=== PATIENT | male | born 1955 | race African-American/Black ===

== ENCOUNTER 2018-10-09 00:34 | Emergency (ER) | payer BC, OTHER ==
--- NOTE | 2018-10-09 04:26 | EDPHYS ---
Physician Documentation [facility] Name: Jesus Caraballo Jr Age: 63 yrs Sex: Male : 1955 Arrival Date: 10/09/2018 Time: 00:38 Bed 25 Private MD: ED Physician Mitchell Gomez HPI: 10/09 02:12 This 63 yrs old Black Male presents to ER via Ambulatory with complaints of Breathing rn Difficulty. 02:12 The patient has shortness of breath at rest, with light activity. Onset: The rn symptoms/episode began/occurred 5 day(s) ago. Duration: The symptoms are intermittent. The patient's shortness of breath is aggravated by exertion, light activity, supine position, talking, walking, is alleviated by rest. Severity of symptoms: At their worst the symptoms were moderate in the emergency department the symptoms are unchanged. The patient has not experienced similar symptoms in the past. The patient has not recently seen a physician. Historical: - Allergies: 00:59 Iodine; ae4 00:59 SHELLFISH; ae4 - Home Meds: 00:59 hydrochlorothiazide 25 mg Oral tab [Active]; metformin 750 mg Oral Tb24 1 tab once ae4 daily [Active]; candesartan 32 mg oral tab 1 tab once daily [Active]; carvedilol 12.5 mg oral tab [Active]; - PMHx: 00:59 Hypertension; Diabetes - NIDDM; ae4 - PSHx: 00:59 None; ae4 - Immunization history:: Adult Immunizations up to date. - Social history:: Smoking status: Patient/guardian denies using tobacco, Patient uses alcohol, weekly. - Ebola Screening: : Patient negative for fever greater than or equal to 101.5 degrees Fahrenheit, and additional compatible Ebola Virus Disease symptoms Patient denies exposure to infectious person Patient denies travel to an Ebola-affected area in the 21 days before illness onset. - Family history:: not pertinent. - Hospitalizations: : No recent hospitalization is reported. ROS: 02:12 Constitutional: Negative for fever, chills, and weight loss, Eyes: Negative for injury, rn pain, redness, and discharge, Neck: Negative for injury, pain, and swelling, Cardiovascular: Negative for chest pain, palpitations, + edema Respiratory: + sob Abdomen/GI: Negative for abdominal pain, nausea, vomiting, diarrhea, and constipation, MS/Extremity: Negative for injury and deformity, Skin: Negative for injury, rash, and discoloration, Neuro: Negative for headache, weakness, numbness, tingling, and seizure. Exam: 02:12 Constitutional: + overweight male, no acute distress Head/Face: Normocephalic, rn atraumatic. Eyes: Pupils equal round and reactive to light, extra-ocular motions intact. Lids and lashes normal. Conjunctiva and sclera are non-icteric and not injected. Cornea within normal limits. Periorbital areas with no swelling, redness, or edema. ENT: MMM Cardiovascular: Regular rate and rhythm. No pulse deficits. No JVD Respiratory: Clear bilateral breath sounds, no wheezing, no retractions, speaking full sentences Abdomen/GI: soft, non-tender MS/ Extremity: 2+ pitting edema bilaterally, equal Neuro: Awake and alert, GCS 15, oriented to person, place, time, and situation. Cranial nerves II-XII grossly intact. Motor strength 5/5 in all extremities. Sensory grossly intact. Cerebellar exam normal. Normal gait. Vital Signs: 00:49 BP 196 / 115; Pulse 91; Resp 24; Temp 98.3(O); Pulse Ox 97% on R/A; Weight 190.51 kg ae4 (R); 01:50 BP 180 / 92; Pulse 89; Resp 18; Pulse Ox 97% on R/A; rv 02:39 BP 173 / 89; Pulse 86; Resp 17; Pulse Ox 97% on R/A; rv MDM: 00:46 Patient medically screened. rn 02:41 Differential diagnosis: CHF exacerbation, Myocardial Infarction pneumonia, Pneumothorax rn pulmonary edema. Data reviewed: vital signs, nurses notes, lab test result(s), EKG, radiologic studies, plain films. Counseling: I had a detailed discussion with the patient and/or guardian regarding: the historical points, exam findings, and any diagnostic results supporting the discharge/admit diagnosis, lab results, radiology results, the need for outpatient follow up, to return to the emergency department if symptoms worsen or persist or if there are any questions or concerns that arise at home. Response to treatment: the patient's symptoms have markedly improved after treatment, the patient's symptoms have resolved after treatment, the patient's condition has returned to base line, the patient is now symptom free, and as a result, I will discharge patient. ED course: Spoke at length with patient, possible chest pain equivalent vs heart failure vs valvular problem, recommendd admission for echo and stress, patient declines, has appt today with pcp at 3 pm, and understands he needs further testing. Filled up 2 urinals here after lasix, told him to get back on his 2nd BP med, and needs outpt stress/echo. . 10/09 00:55 Order name: Cardiac monitoring; Complete Time: rn 10/09 00:55 Order name: EKG - Nurse/Tech; Complete Time: rn 10/10 99:55 Order name: IV Saline Lock; Complete Time: rn 10/10 99: Order name: Labs collected and sent; Complete Time: rn 10/10 99:55 Order name: O2 Per Protocol; Complete Time: rn 10/09 00:55 Order name: O2 Sat Monitoring; Complete Time: rn Administered Medications: Drug: Lasix 40 mg Route: IVP; Site: left forearm; rv 01:47 Follow up: Urine output 400 ml; Response: No adverse reaction rv Disposition: 10/09/18 02:42 Discharged to Home. Impression: Dyspnea, unspecified, Edema, unspecified. - Condition is Stable. - Discharge Instructions: Edema, Shortness of Breath. - Medication Reconciliation Form, Thank You Letter, Antibiotic Education, Prescription Opioid Use form. - Follow up: Private Physician; When: As needed; Reason: Recheck today's complaints, Re-evaluation by your physician. - Problem is an ongoing problem. - Symptoms have improved. Signatures: Mitchell Gomez MD MD rn Vicente, Ronaldo, RN RN rv Thong Reynolds RN RN ae4 Corrections: (The following items were deleted from the chart) 03:04 02:42 10/09/2018 02:42 Discharged to Home. Impression: Dyspnea, unspecified; Edema, rv unspecified. Condition is Stable. Forms are Medication Reconciliation Form, Thank You Letter, Antibiotic Education, Prescription Opioid Use. Follow up: Private Physician; When: As needed; Reason: Recheck today's complaints, Re-evaluation by your physician. Problem is an ongoing problem. Symptoms have improved. rn
--- NOTE | 2018-10-09 04:26 | ER ---
Nurse's Notes [facility] Name: Jesus Caraballo Jr Age: 63 yrs Sex: Male : 1955 Arrival Date: 10/09/2018 Time: 00:38 Bed 25 Private MD: Diagnosis: Dyspnea, unspecified;Edema, unspecified Presentation: 10/09 00:50 Presenting complaint: Patient states: Patient states he has SOB since 5 guys ago, and ae4 has increased this evening, also reports headache and lower back pain, dizziness and nausea. Patient also mentions he started a new BP medication last week. Transition of care: patient was not received from another setting of care. Onset of symptoms was October 04, 2018. Risk Assessment: Do you want to hurt yourself or someone else? Patient reports no desire to harm self or others. Initial Sepsis Screen: Does the patient meet any 2 criteria? RR > 20 per min. HR > 90 bpm. Does the patient have a suspected source of infection? No. Patient's initial sepsis screen is negative. Care prior to arrival: None. 00:50 Method Of Arrival: Ambulatory ae4 00:50 Acuity: BARON 3 ae4 Triage Assessment: 00:52 General: Appears in no apparent distress. uncomfortable, obese, Behavior is ae4 cooperative, anxious. Pain: Complains of pain in head and back of head. EENT: No signs and/or symptoms were reported regarding the EENT system. wears glasses. Neuro: Level of Consciousness is awake, alert, obeys commands, Oriented to person, place, time, situation, Appropriate for age. Cardiovascular: Patient's skin is warm and dry. Respiratory: Reports shortness of breath air hunger labored breathing Onset: The symptoms/episode began/occurred gradually, the patient has moderate shortness of breath. GI: Abdomen is round obese. : No signs and/or symptoms were reported regarding the genitourinary system. Derm: No signs and/or symptoms reported regarding the dermatologic system. Skin is normal. Musculoskeletal: No signs and/or symptoms reported regarding the musculoskeletal system. Historical: - Allergies: 00:59 Iodine; ae4 00:59 SHELLFISH; ae4 - Home Meds: 00:59 hydrochlorothiazide 25 mg Oral tab [Active]; metformin 750 mg Oral Tb24 1 tab once ae4 daily [Active]; candesartan 32 mg oral tab 1 tab once daily [Active]; carvedilol 12.5 mg oral tab [Active]; - PMHx: 00:59 Hypertension; Diabetes - NIDDM; ae4 - PSHx: 00:59 None; ae4 - Immunization history:: Adult Immunizations up to date. - Social history:: Smoking status: Patient/guardian denies using tobacco, Patient uses alcohol, weekly. - Ebola Screening: : Patient negative for fever greater than or equal to 101.5 degrees Fahrenheit, and additional compatible Ebola Virus Disease symptoms Patient denies exposure to infectious person Patient denies travel to an Ebola-affected area in the 21 days before illness onset. - Family history:: not pertinent. - Hospitalizations: : No recent hospitalization is reported. Screenin:00 Abuse screen: Denies threats or abuse. Nutritional screening: No deficits noted. ae4 Tuberculosis screening: Never had TB. Fall Risk None identified. Assessment: 00:55 Cardiovascular: Rhythm is regular. Respiratory: Airway is patent Respiratory effort is ae4 even, Mildly labored. Breath sounds are clear bilaterally. 01:48 General: Appears in no apparent distress. comfortable, Behavior is calm, cooperative. rv Pain: Denies pain. Neuro: Level of Consciousness is awake, alert, obeys commands, Oriented to person, place, time, situation. Cardiovascular: Patient's skin is warm and dry. Respiratory: Airway is patent. GI: No signs and/or symptoms were reported involving the gastrointestinal system. : No signs and/or symptoms were reported regarding the genitourinary system. EENT: No signs and/or symptoms were reported regarding the EENT system. Derm: Skin is intact. Musculoskeletal: No signs and/or symptoms reported regarding the musculoskeletal system. Vital Signs: 00:49 BP 196 / 115; Pulse 91; Resp 24; Temp 98.3(O); Pulse Ox 97% on R/A; Weight 190.51 kg ae4 (R); 01:50 BP 180 / 92; Pulse 89; Resp 18; Pulse Ox 97% on R/A; rv 02:39 BP 173 / 89; Pulse 86; Resp 17; Pulse Ox 97% on R/A; rv ED Course: 00:38 Patient arrived in ED. ds1 00:46 Mitchell Gomez MD is Attending Physician. rn 00:49 Thong Reynolds, RN is Primary Nurse. ae4 00:49 Arm band placed on right wrist. ae4 00:52 Triage completed. ae4 01:00 Bed in low position. Call light in reach. Side rails up X 1. monitor worker on. Pulse ae4 ox on. NIBP on. 01:15 Inserted saline lock: 20 gauge in left forearm, using aseptic technique. rv 03:03 No provider procedures requiring assistance completed. IV discontinued, intact, rv bleeding controlled, No redness/swelling at site. Pressure dressing applied. Administered Medications: 01:29 Drug: Lasix 40 mg Route: IVP; Site: left forearm; rv 01:47 Follow up: Urine output 400 ml; Response: No adverse reaction rv Output: 01:47 Urine: 400ml; Total: 400ml. rv 02:14 Urine: 1250ml (Voided); Total: 1650ml. rv 02:40 Urine: 850ml (Voided); Total: 2500ml. rv Outcome: 02:42 Discharge ordered by . rn 03:03 Discharged to home ambulatory. rv 03:03 Condition: good 03:03 Discharge instructions given to patient, Instructed on discharge instructions, follow up and referral plans. Demonstrated understanding of instructions, follow-up care. 03:04 Patient left the ED. rv Signatures: Kellie Arellano ds1 Mitchell Gomez MD MD rn Vicente, Ronaldo, RN RN rv Thong Reynolds, RN RN ae4
[2018-10-09 04:54] LABS: Absolute Lymphocytes (CBC) 2.6 K/uL (0.7-4.9); Basophils % 0.9 % (0-1.3); Eosinophils % 1.1 % (0-4.4); Lymphocytes % 29.9 % (15.3-44.8); MPV 8.1 fL (7.6-11.3); Monocytes % 6.6 % (3.3-12.3); RBC Red Blood Cell Count 4.87 M/uL (4.33-5.43)
[2018-10-09 04:55] LABS: BUN Blood Urea Nitrogen 14 mg/dL (7-18); Bicarbonate 28 mmol/L (21-32); Glucose Level 115 mg/dL (74-106); NT PRO-BNP 37 pg/mL (<125); Potassium 3.7 mmol/L (3.5-5.1); Sodium Level 139 mmol/L (136-145); Troponin (Emerg Dept Use Only) < 0.02 ng/mL (0.0-0.045)
--- NOTE | 2018-10-09 08:19 | RAD REPORT ---
EXAM DESCRIPTION: RAD - Chest Single View - 10/09/2018 4:13 am CLINICAL HISTORY: CHEST PAIN Chest pain. COMPARISON: CHEST SINGLE VIEW dated 03/19/2011 FINDINGS: Portable technique limits examination quality. The lungs are underinflated resulting in significant vascular crowding. The heart is prominent in siz e. No displaced fractures. IMPRESSION: Underinflated lungs.
--- NOTE | 2018-10-09 09:55 | EKG ---
Test Date: 2018-10-09 Test Time: 01:40:34 [employer]ap Security Architect: MEASUREMENT RESULTS: Intervals: Rate: 85 DE: 206 QRSD: 104 QT: 374 QTc: 445 [place]: P: 44 DE: 206 QRS: -2 T: 51 INTERPRETIVE STATEMENTS: Normal sinus rhythm Normal ECG Compared to ECG 09/02/2012 16:26:13 Ventricular premature complex(es) no longer present Electronically Signed On 10-09-18 09:54:17 CDT by Dilshad Daly
== END 2018-10-09 03:04 | disposition home or self-care (01) ==
LOC: ER 00:34
DX: R60.9 Edema, unspecified (principal); I10 Essential (primary) hypertension; E11.9 Type 2 diabetes mellitus without complications; Z91.013 Allergy to seafood; Z91.048 Other nonmedicinal substance allergy status
CPT/HCPCS: 36415; 71045; 80048; 83880; 84484; 85025; 93005; 96374; 99284

== ENCOUNTER 2019-07-03 22:33 | Emergency (ER) | payer BC ==
--- OUTSIDE RECORDS SUMMARY | 2019-07-03 22:35 | XMS REPORT ---
:1955 [facility] Address [address] [place] [address] Dr. Vick [address] [place] [id number] Care Team Providers Name Role Phone Unavailable Unavailable Unavailable Problems This patient has no known problems. Allergies, Adverse Reactions, Alerts This patient has no known allergies or adverse reactions. Medications This patient has no known medications.
[2019-07-03 23:11] LABS: Absolute Lymphocytes (CBC) 3.3 K/uL (0.7-4.9); Basophils % 0.8 % (0-1.3); Hematocrit 47.9 % (39.6-49.0); Lymphocytes % 37.7 % (15.3-44.8); MPV 8.5 fL (7.6-11.3); RBC Red Blood Cell Count 5.45 M/uL (4.33-5.43)
[2019-07-03] MEDS ORDERED: cloNIDine HCL 0.1 MG TAB ONE (23:11)
[2019-07-03 23:12] LABS: Protime INR 1.03
[2019-07-03] MEDS ORDERED: AMLODIPINE 5 MG TAB ONE (23:12)
[2019-07-03] MEDS ORDERED: MAXZIDE (HCTZ 25/TRIAMTERENE 37.5MG) TAB ONE (23:24)
[2019-07-03 23:32] LABS: ALT/SGPT 37 U/L (12-78); AST/SGOT 19 U/L (15-37); Albumin 3.7 g/dL (3.4-5.0); Alkaline Phosphatase 94 U/L (45-117); BUN Blood Urea Nitrogen 15 mg/dL (7-18); Bicarbonate 30 mmol/L (21-32); Bilirubin Direct 0.3 mg/dL (0-0.2); Bilirubin Total 1.3 mg/dL (0.2-1.0); Glucose Level 121 mg/dL (74-106); Magnesium 2.1 mg/dL (1.8-2.4); NT PRO-BNP 65 pg/mL (<125); Potassium 3.4 mmol/L (3.5-5.1); Protein, Total 8.1 g/dL (6.4-8.2); Sodium Level 139 mmol/L (136-145); Troponin (Emerg Dept Use Only) < 0.02 ng/mL (0.0-0.045)
[2019-07-04] MEDS ORDERED: POTASSIUM 25 MEQ EFFERV TAB ONE (00:21)
--- NOTE | 2019-07-04 00:52 | EDPHYS ---
Physician Documentation [facility] Name: Jesus Caraballo Jr Age: 64 yrs Sex: Male : 1955 Arrival Date: 07/03/2019 Time: 22:34 Bed 6 Private MD: ED Physician Yaw Feliciano HPI: 07/02 23:02 This 64 yrs old Black Male presents to ER via Ambulatory with complaints of High Blood wally Pressure. 23:02 The patient has elevated blood pressure and discovered this at home. Onset: The wally symptoms/episode began/occurred 2 day(s) ago. Modifying factors: The symptoms are aggravated by activity, The symptoms are alleviated by remaining still. Associated signs and symptoms: The patient has no apparent associated signs or symptoms. Severity of symptoms: At its worst the blood pressure was moderate, in the emergency department the blood pressure is unchanged. The patient has not experienced similar symptoms in the past. Historical: - Allergies: 22:42 Iodine; ll1 22:42 SHELLFISH; ll1 - PMHx: 22:42 Hypertension; Diabetes - NIDDM; ll1 - PSHx: 22:42 fractured shoulder repair; ll1 - Immunization history:: Adult Immunizations up to date. - Social history:: Patient/guardian denies using alcohol, street drugs, tobacco products, Smoking status: unknown. - Family history:: not pertinent. ROS: 23:02 Constitutional: Negative for fever, chills, and weight loss, Eyes: Negative for injury, wally pain, redness, and discharge, ENT: Negative for injury, pain, and discharge, Neck: Negative for injury, pain, and swelling, Cardiovascular: Negative for chest pain, palpitations, and edema, Respiratory: Negative for shortness of breath, cough, wheezing, and pleuritic chest pain, Abdomen/GI: Negative for abdominal pain, nausea, vomiting, diarrhea, and constipation, Back: Negative for injury and pain, : Negative for injury, bleeding, discharge, and swelling, MS/Extremity: Negative for injury and deformity, Skin: Negative for injury, rash, and discoloration, Psych: Negative for depression, anxiety, suicide ideation, homicidal ideation, and hallucinations, Allergy/Immunology: Negative for hives, rash, and allergies, Endocrine: Negative for neck swelling, polydipsia, polyuria, polyphagia, and marked weight changes, Hematologic/Lymphatic: Negative for swollen nodes, abnormal bleeding, and unusual bruising. 23:02 Neuro: Positive for dizziness, headache. Exam: 23:02 Constitutional: This is a well developed, well nourished patient who is awake, alert, wally and in no acute distress. Head/Face: Normocephalic, atraumatic. Eyes: Pupils equal round and reactive to light, extra-ocular motions intact. Lids and lashes normal. Conjunctiva and sclera are non-icteric and not injected. Cornea within normal limits. Periorbital areas with no swelling, redness, or edema. ENT: Nares patent. No nasal discharge, no septal abnormalities noted. Tympanic membranes are normal and external auditory canals are clear. Oropharynx with no redness, swelling, or masses, exudates, or evidence of obstruction, uvula midline. Mucous membranes moist. Neck: Trachea midline, no thyromegaly or masses palpated, and no cervical lymphadenopathy. Supple, full range of motion without nuchal rigidity, or vertebral point tenderness. No Meningismus. Chest/axilla: Normal chest wall appearance and motion. Nontender with no deformity. No lesions are appreciated. Cardiovascular: Regular rate and rhythm with a normal S1 and S2. No gallops, murmurs, or rubs. Normal PMI, no JVD. No pulse deficits. Respiratory: Lungs have equal breath sounds bilaterally, clear to auscultation and percussion. No rales, rhonchi or wheezes noted. No increased work of breathing, no retractions or nasal flaring. Abdomen/GI: Soft, non-tender, with normal bowel sounds. No distension or tympany. No guarding or rebound. No evidence of tenderness throughout. Back: No spinal tenderness. No costovertebral tenderness. Full range of motion. Male : Normal genitalia with no discharge or lesions. Skin: Warm, dry with normal turgor. Normal color with no rashes, no lesions, and no evidence of cellulitis. MS/ Extremity: Pulses equal, no cyanosis. Neurovascular intact. Full, normal range of motion. Neuro: Awake and alert, GCS 15, oriented to person, place, time, and situation. Cranial nerves II-XII grossly intact. Motor strength 5/5 in all extremities. Sensory grossly intact. Cerebellar exam normal. Normal gait. Psych: Awake, alert, with orientation to person, place and time. Behavior, mood, and affect are within normal limits. Vital Signs: 22:40 BP 223 / 183; Pulse 73; Resp 20; Temp 97.8; Pulse Ox 100% ; Pain 0/10; ll1 23:13 BP 199 / 121; Pulse 67; Resp 17 S; Pulse Ox 99% on R/A; jd3 23:24 BP 153 / 97; Pulse 67; Resp 17 S; Pulse Ox 100% on R/A; jd3 04 00:20 BP 189 / 90; Pulse 63; Resp 17 S; Pulse Ox 97% ; jd3 MDM: 07/02 22:44 Patient medically screened. [facility] 23:04 Data reviewed: vital signs, nurses notes, lab test result(s), EKG, radiologic studies, wally plain films. 07/02 22:45 Order name: Basic Metabolic Panel; Complete Time: 00:07 [facility] 07/02 22:45 Order name: CBC with Diff; Complete Time: 00:07 [facility] 07/02 22:45 Order name: LFT's; Complete Time: 00:07 [facility] 07/02 22:45 Order name: Magnesium; Complete Time: 00:07 [facility] 07/02 22:45 Order name: NT PRO-BNP; Complete Time: 00:07 [facility] 07/02 22:45 Order name: PT-INR; Complete Time: 00:07 [facility] 07/02 22:45 Order name: Troponin (emerg Dept Use Only); Complete Time: 00:07 [facility] 07/02 22:45 Order name: XRAY Chest (1 view) [facility] 07/02 22:45 Order name: Urine Culture [facility] 07/02 23:02 Order name: CT Head Brain wo Cont [facility] 07/03 00:09 Order name: Urine Dipstick--Ancillary (enter results) ar5 07/02 22:45 Order name: EKG; Complete Time: 22:46 [facility] 07/02 22:45 Order name: Cardiac monitoring; Complete Time: 22:46 [facility] 07/02 22:45 Order name: EKG - Nurse/Tech; Complete Time: 22:52 [facility] 07/02 22:45 Order name: IV Saline Lock; Complete Time: 22:52 [facility] 07/02 22:45 Order name: Labs collected and sent; Complete Time: 22:53 [facility] 07/02 22:45 Order name: O2 Per Protocol; Complete Time: 22:46 [facility] 07/02 22:45 Order name: O2 Sat Monitoring; Complete Time: 22:46 [facility] 07/02 22:45 Order name: Urine Dipstick-Ancillary (obtain specimen); Complete Time: 23:12 [facility] Administered Medications: 23:12 Drug: Norvasc 10 mg Route: PO; jd3 07/03 00:10 Follow up: Response: No adverse reaction [facility] 07/02 23:12 Drug: cloNIDine 0.1 mg Route: PO; jd3 07/03 00:10 Follow up: Response: No adverse reaction [facility] 07/02 23:23 Drug: Maxzide (37.5 mg-25 mg) 1 caps Route: PO; jd3 07/03 00:20 Follow up: Response: No adverse reaction jd3 00:18 Drug: Potassium Effervescent Tablet 25 mEq Route: PO; jd3 01:05 Follow up: Response: No adverse reaction jd3 Disposition: 07/04/19 00:51 Discharged to Home. Impression: Obesity, unspecified, Essential (primary) hypertension, Type 2 diabetes mellitus, Hypokalemia. - Condition is Stable. - Discharge Instructions: Type 2 Diabetes Mellitus, Diagnosis, Adult, Hypertension, Obesity, Adult, Heart Disease Prevention, Hypertension, Ugcb-ma-Jiet, How to Take Your Blood Pressure, Nbsc-[id number], Type 2 Diabetes Mellitus, Diagnosis, Adult, [id number], Managing Your Hypertension. - Prescriptions for Maxzide- 25mg 37.5-25 mg Oral tablet - take 1 tablet by ORAL route once daily; 20 tablet. Norvasc 5 mg Oral Tablet - take 1 tablet by ORAL route once daily; 20 tablet. - Medication Reconciliation Form, Thank You Letter, Antibiotic Education, Prescription Opioid Use form. - Follow up: Private Physician; When: 2 - 3 days; Reason: Recheck today's complaints, Continuance of care, Re-evaluation by your physician. Follow up: Tung Victor; When: 2 - 3 days; Reason: Recheck today's complaints, Continuance of care, Re-evaluation by your physician. - Problem is new. - Symptoms have improved. Signatures: Dispatcher [employer] Yaw Cornelius MD MD cha Davies, Jonathon, RN RN jd3 Dianne Martinez RN RN ll1 Corrections: (The following items were deleted from the chart) 01:05 00:51 07/04/2019 00:51 Discharged to Home. Impression: Obesity, unspecified; Essential jd3 (primary) hypertension; Type 2 diabetes mellitus; Hypokalemia. Condition is Stable. Discharge Instructions: Type 2 Diabetes Mellitus, Diagnosis, Adult, Hypertension, Obesity, Adult, Heart Disease Prevention, Hypertension, [id number], How to Take Your Blood Pressure, [id number]-al-[id number], Type 2 Diabetes Mellitus, Diagnosis, Adult, Bcbv-[id number]-Ibuw, Managing Your Hypertension. Prescriptions for Maxzide-25mg 37.5-25 mg Oral tablet - take 1 tablet by ORAL route once daily; 20 tablet, Norvasc 5 mg Oral Tablet - take 1 tablet by ORAL route once daily; 20 tablet. and Forms are Medication Reconciliation Form, Thank You Letter, Antibiotic Education, Prescription Opioid Use. Follow up: Private Physician; When: 2 - 3 days; Reason: Recheck today's complaints, Continuance of care, Re-evaluation by your physician. Follow up: Tung Victor; When: 2 - 3 days; Reason: Recheck today's complaints, Continuance of care, Re-evaluation by your physician. Problem is new. Symptoms have improved. wally
--- NOTE | 2019-07-04 00:52 | ER ---
Nurse's Notes [facility] Name: Jesus Caraballo Jr Age: 64 yrs Sex: Male : 1955 Arrival Date: 07/03/2019 Time: 22:34 Bed 6 Private MD: Diagnosis: Obesity, unspecified;Essential (primary) hypertension;Type 2 diabetes mellitus;Hypokalemia Presentation: 07/02 22:40 Chief complaint: Patient states: ESTEVEZ for 2 days. Checked BP at home 250/146. Came in to [facility] get evaluated. States he is taking his medications as prescribed. No dizziness or SOB. No cough/congestion, no fever. No sick contacts. Coronavirus screen: Patient denies fever greater than 100.4F, cough, shortness of breath, or difficulty breathing. Proceed with normal triage process. Ebola Screen: Patient denies travel to an Ebola-affected area in the 21 days before illness onset. Risk Assessment: Do you want to hurt yourself or someone else? Patient reports no desire to harm self or others. 22:40 Method Of Arrival: Ambulatory [facility] 22:40 Acuity: BARON 2 [facility] 22:52 Onset of symptoms was July 01, 2019. jd3 23:13 Initial Sepsis Screen: Does the patient meet any 2 criteria? No. Patient's initial jd3 sepsis screen is negative. Does the patient have a suspected source of infection? No. Patient's initial sepsis screen is negative. Historical: - Allergies: 22:42 Iodine; ll1 22:42 SHELLFISH; ll1 - PMHx: 22:42 Hypertension; Diabetes - NIDDM; ll1 - PSHx: 22:42 fractured shoulder repair; ll1 - Immunization history:: Adult Immunizations up to date. - Social history:: Patient/guardian denies using alcohol, street drugs, tobacco products, Smoking status: unknown. - Family history:: not pertinent. Screenin:51 Abuse screen: Denies threats or abuse. Nutritional screening: No deficits noted. jd3 Tuberculosis screening: No symptoms or risk factors identified. Fall Risk Ambulatory Aid- None/Bed Rest/Nurse Assist (0 pts). Gait- Normal/Bed Rest/Wheelchair (0 pts) Mental Status- Oriented to own ability (0 pts). Total Rosa Fall Scale indicates No Risk (0-24 pts). Assessment: 22:48 General: Appears in no apparent distress. uncomfortable, Behavior is calm, cooperative, jd3 appropriate for age. Pain: Complains of pain in head Pain currently is 2 out of 10 on a pain scale. Quality of pain is described as aching, pressure. Neuro: Level of Consciousness is awake, alert, obeys commands, Oriented to person, place, time, situation, Reports headache. Cardiovascular: Heart tones S1 S2 present Capillary refill < 3 seconds Patient's skin is warm and dry. Rhythm is regular. Respiratory: Airway is patent Respiratory effort is even, unlabored, Respiratory pattern is regular, symmetrical, Breath sounds are clear bilaterally. Denies cough, shortness of breath. GI: No signs and/or symptoms were reported involving the gastrointestinal system. Patient currently denies diarrhea, nausea, vomiting. : No signs and/or symptoms were reported regarding the genitourinary system. EENT: No signs and/or symptoms were reported regarding the EENT system. Derm: Skin is intact, Skin is dry, Skin is normal, Skin temperature is warm. Musculoskeletal: Circulation, motion, and sensation intact. Range of motion: intact in all extremities. 23:13 Reassessment: Patient appears in no apparent distress at this time. No changes from jd3 previously documented assessment. Patient and/or family updated on plan of care and expected duration. Pain level reassessed. Patient is alert, oriented x 3, equal unlabored respirations, skin warm/dry/pink. 07/03 00:20 Reassessment: Patient appears in no apparent distress at this time. Patient and/or jd3 family updated on plan of care and expected duration. Pain level reassessed. Patient is alert, oriented x 3, equal unlabored respirations, skin warm/dry/pink. awaiting CT. 01:03 Reassessment: Patient appears in no apparent distress at this time. Patient and/or jd3 family updated on plan of care and expected duration. Pain level reassessed. Patient is alert, oriented x 3, equal unlabored respirations, skin warm/dry/pink. pt reported understanding of discharge instructions. even and steady gait upon discharge. Patient states feeling better. Vital Signs: 07/02 22:40 BP 223 / 183; Pulse 73; Resp 20; Temp 97.8; Pulse Ox 100% ; Pain 0/10; ll1 23:13 BP 199 / 121; Pulse 67; Resp 17 S; Pulse Ox 99% on R/A; jd3 23:24 BP 153 / 97; Pulse 67; Resp 17 S; Pulse Ox 100% on R/A; jd3 07/03 00:20 BP 189 / 90; Pulse 63; Resp 17 S; Pulse Ox 97% ; jd3 ED Course: 07/02 22:34 Patient arrived in ED. cf2 22:41 Triage completed. ll1 22:42 Arm band placed on Patient placed in an exam room, on a stretcher. ll1 22:44 Yaw Feliciano MD is Attending Physician. wally 22:45 Alvarado Thomas, MELCHOR is Primary Nurse. jd3 22:50 Inserted saline lock: 20 gauge in right antecubital area, using aseptic technique. ea Blood collected. 22:51 Patient has correct armband on for positive identification. Bed in low position. Call jd3 light in reach. Side rails up X 1. hall monitor on. Pulse ox on. NIBP on. 22:57 Basic Metabolic Panel Sent. jb5 22:57 CBC with Diff Sent. jb5 22:57 LFT's Sent. jb5 22:57 Magnesium Sent. jb5 22:57 NT PRO-BNP Sent. jb5 22:57 PT-INR Sent. jb5 22:57 Troponin (emerg Dept Use Only) Sent. jb5 07/03 00:38 XRAY Chest (1 view) In Process Unspecified. EDMS 00:51 Tung Victor MD is Referral Physician. wally 00:56 CT Head Brain wo Cont In Process Unspecified. EDMS 01:02 No provider procedures requiring assistance completed. IV discontinued, intact, jd3 bleeding controlled, No redness/swelling at site. Pressure dressing applied. Administered Medications: 07/02 23:12 Drug: Norvasc 10 mg Route: PO; jd3 07/03 00:10 Follow up: Response: No adverse reaction jd3 07/02 23:12 Drug: cloNIDine 0.1 mg Route: PO; jd3 07/03 00:10 Follow up: Response: No adverse reaction jd3 07/02 23:23 Drug: Maxzide (37.5 mg-25 mg) 1 caps Route: PO; jd3 07/03 00:20 Follow up: Response: No adverse reaction jd3 00:18 Drug: Potassium Effervescent Tablet 25 mEq Route: PO; jd3 01:05 Follow up: Response: No adverse reaction jd3 Outcome: 00:51 Discharge ordered by . wally 01:02 Discharged to home ambulatory. jd3 01:02 Condition: stable 01:02 Discharge instructions given to patient, Instructed on discharge instructions, follow up and referral plans. medication usage, Demonstrated understanding of instructions, follow-up care, medications, Prescriptions given X 2. 01:05 Patient left the ED. jd3 Signatures: Dispatcher [employer] EDMS Yaw Feliciano MD MD cha Broussard, Jennifer jb5 Kellie Garrett RN RN Alvarado Lopez RN RN jAlea Michelle 2 Dianne Martinez RN RN ll1 Corrections: (The following items were deleted from the chart) 07/02 22:57 22:48 Pain: Complains of pain in head Pain currently is 1 out of 10 on a pain scale. jd3 Quality of pain is described as aching, pressure, jd3
[2019-07-04 01:10] LABS: Urine Blood TRACE (NEG); Urine Glucose NEGATIVE (NEG); Urine Protein NEGATIVE (NEG); Urine Specific Gravity 1.015 (1.005-1.030)
[2019-07-04 01:13] VITALS: TEMP 97.8
[2019-07-04 01:18] VITALS: BP 189/90; O2SAT 97
--- NOTE | 2019-07-04 09:15 | RAD REPORT ---
EXAM DESCRIPTION: Radha Single View07/04/2019 12:38 am CLINICAL HISTORY: Cough COMPARISON: September 2018 FINDINGS: Right hemidiaphragm remains elevated. The lungs appear clear of acute infiltrate. The heart is normal size IMPRESSION: No acute abnormalities displayed
--- NOTE | 2019-07-04 10:10 | RAD REPORT ---
EXAM DESCRIPTION: CT - Head Brain Wo Cont - 07/04/2019 4:11 am CLINICAL HISTORY: Dizziness;Headache COMPARISON: None available TECHNIQUE: Axial CT of the head obtained from the skull apex to the skull base without contrast. FINDINGS: No acute intracranial hemorrhage identified. No mass, mass effect, shift of the midline, abnormal ext ra-axial fluid collection or CT evidence of acute ischemic change identified. The ventricular system and sulcal spaces are is not enlarged. Scattered areas of hypodensity throughout the supratentorial white matter are nonspecific and may be related to chronic small vessel ischemic change. The visualized paranasal sinuses and the mastoids are clear. No skull fracture identified. Visual ized orbits and globes are unremarkable. Atherosclerotic calcification of the intracranial internal c arotid arteries. No acute intracranial abnormality by CT criteria. This exam was performed according to our departmental dose-optimization program, which includes autom ated exposure control, adjustment of the mA and/or kV according To patient size and/or use of iterative reconstruction technique. Electronically signed by: Preet Malone 07/04/2019 1:06 AM CDT Due to temporary technical issues with the PACS/Fluency reporting system, reports are being signed by the in house radiologist as a courtesy to ensure prompt reporting. The interpreting radiologist is f ully responsible for the content of the report.
--- NOTE | 2019-07-04 14:38 | EKG ---
Test Date: 2019-07-03 Test Time: 22:54:01 Customer Solutions Representative: ROSITA MEASUREMENT RESULTS: Intervals: Rate: 78 VT: 198 QRSD: 94 QT: 404 QTc: 460 Burgess: P: 47 VT: 198 QRS: -13 T: 38 INTERPRETIVE STATEMENTS: Sinus rhythm with frequent premature ventricular complexes in a pattern of bigeminy Otherwise normal ECG Compared to ECG 10/09/2018 01:40:34 Ventricular premature complex(es) now present Electronically Signed On 07-04-19 14:36:49 CDT by Tung Victor
== END 2019-07-04 01:05 | disposition home or self-care (01) ==
LOC: ER 22:33
DX: I10 Essential (primary) hypertension (principal); E11.9 Type 2 diabetes mellitus without complications; E87.6 Hypokalemia; E66.9 Obesity, unspecified; I49.3 Ventricular premature depolarization
CPT/HCPCS: 36415; 70450; 71045; 80048; 80076; 81003; 83735; 83880; 84484; 85025; 85610; 87086; 87088; 93005; 99284